=== PATIENT | male | born 1980 | race Hispanic/Latino ===

== ENCOUNTER 2023-09-24 12:20 | Emergency (ER) | payer BC ==
[~2023-09-24] VITALS: Ht 180.3 cm; Wt 136.1 kg
[2023-09-24 12:46] LABS: BASOPHILS # (AUTO) 0.1 (0.0-0.1); BASOPHILS % 0.4 % (0.0-1.0); EOSINOPHILS # (AUTO) 0.4 (0.0-0.4); HEMOGLOBIN 16.9 g/dL (14.0-18.0); LYMPHOCYTES # (AUTO) 3.6 (1.0-3.2); LYMPHOCYTES % 30.4 % (18.0-39.1); MEAN CORPUSCULAR HEMOGLOBIN 30.1 pg (28-32); MEAN CORPUSCULAR HGB CONC 35.2 g/dL (31-35); MEAN CORPUSCULAR VOLUME 85.6 fL (81-99); MONOCYTES # (AUTO) 0.7 (0.2-0.8); MONOCYTES % 5.5 % (4.4-11.3); NEUTROPHILS # (AUTO) 7.1 (2.1-6.9); NEUTROPHILS % 60.4 % (38.7-80.0); PLATELET COUNT 290 x10e3/uL (140-360); RED BLOOD COUNT 5.61 x10e6/uL (4.3-5.7); RED CELL DISTRIBUTION WIDTH 13.2 % (11.7-14.4); WHITE BLOOD COUNT 11.84 x10e3/uL (4.8-10.8)
[2023-09-24 13:01] LABS: ALBUMIN 3.8 g/dL (3.5-5.0); ANION GAP 16.5 mmol/L (8-16); BILIRUBIN,TOTAL 0.6 mg/dL (0.2-1.2); CALCIUM 9.3 mg/dL (8.4-10.2); CREATININE, SERUM 0.87 mg/dL (0.72-1.25); POTASSIUM 3.5 mmol/L (3.5-5.1); TOTAL PROTEIN 7.8 g/dL (6.5-8.1)
[2023-09-24] MEDS: SODIUM CHLORIDE 0.9% 1000ML 1,000 ML IV STA (13:06)
[2023-09-24] MEDS: ONDANSETRON HCL INJ 2MG/ML 2ML 2 MG/ML VIAL IV STA (13:54)
[2023-09-24] MEDS: Morphine 4mg INJECTION 4 MG/ML INJ IV STA (13:58)
[2023-09-24] MEDS ORDERED: IOPAMIDOL 370 MG/ML 100 ML INFUS..BTL INJ ONE (14:18)
[2023-09-24] MEDS ORDERED: HYDROCODON-ACE1 EA11 PO (14:38)
[2023-09-24 16:10] VITALS: BP 144/96; PULSE 87; RESP 16; O2SAT 100
== END 2023-09-24 15:45 | disposition home or self-care (01) ==
LOC: ER 12:36
DX: S00.83XA Contusion of other part of head, initial encounter (principal); M25.512 Pain in left shoulder; M54.6 Pain in thoracic spine; W20.8XXA Other cause of strike by thrown, projected or falling object, initial encounter; Y92.89 Other specified places as the place of occurrence of the external cause; R94.31 Abnormal electrocardiogram [ECG] [EKG]
CPT/HCPCS: 36415; 70450; 71260; 72125; 73020; 74177; 80053; 85025; 93005; 99284; J2270; J2405; J7030; Q9967